=== PATIENT | female | born 1935 | race Caucasian/White ===

== ENCOUNTER → 2016-08-31 | Outpatient (CLI) | payer MEDICARE, BC ==
[~2016-08-31] MED LIST: 3N1 COMMODE MC; ALPR0.25 PO; ASPI-781 PO; BEN25 PO; CIPR-193 PO; DOCU-144 PO; DULR PR; LEVO50TA83 PO; LOSA100T7 PO; OXYC-481 PO; PANT40TA4 PO; RANI150T9 PO; TRAM50TA2 PO; WALK1EAC23 MC; ZOC20 PO
--- NOTE | 2016-08-31 09:41 | RADRPT ---
PROCEDURE: XR pelvis/right hip. CLINICAL INDICATION: Hip pain TECHNIQUE: AP pelvis/AP and lateral right hip views performed. 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 There is no evidence of loosening of the prosthesis. There is mild left hip osteoarthrosis. This is associated with joint space narrowing, subchondral sc lerosis and osteophytosis. There is normal osseous mineralization. No fractures or osseous lesions are identified. The soft tissues are unremarkable. IMPRESSION: Right total hip replacement. Mild left hip osteoarthrosis. RPTAT: [facility] .Kevin Julian MD, Date Time Electronically viewed and signed by .Kevin Julian MD, on 08/31/2016 09:41 .B/
== END | disposition home or self-care (01) ==
LOC: HKI 08:50
PROVIDERS: ATTEND Orthopaedic Surgery
DX: M51.36 Other intervertebral disc degeneration, lumbar region (principal); M54.5 Low back pain; M54.16 Radiculopathy, lumbar region; Z96.641 Presence of right artificial hip joint
CPT/HCPCS: 73502; G0463

== ENCOUNTER → 2018-02-16 | Outpatient (CLI) | END | disposition home or self-care (01) ==